=== PATIENT | female | born 1995 | race Asian ===

== ENCOUNTER 2017-05-12 03:41 | Emergency (ER) | payer SELFPAY ==
[~2017-05-12] VITALS: Ht 160 cm; Wt 47.6 kg
--- NOTE | 2017-05-12 03:48 | Emergency Room Report ---
History of Present Illness General Chief Complaint: Alcohol Intoxication Source: Patient Present Illness [facility] personal driver brought the patient and sig other to the emergency department because they were unresponsive in the back seat. Now alert and responsive although they claim that they have drunk a lot of alcohol. She denies any head trauma. She denies medical problems. She states she is not at this time. Denies SI. No NVD, dysuria, dyspnea, rashes. Allergies: Coded Allergies: No Known Allergies (Unverified , 05/12/17) Patient History Past Medical History: see triage record Social History: Reports: alcohol use Social History Narrative with sig other Last Menstrual Period: unk Reviewed Nursing Documentation: PMH: Agreed, PSxH: Agreed Nursing Documentation-PMH Past Medical History: No Stated History Review of Systems All Other Systems: negative except mentioned in HPI Physical Exam Vital Signs Date Time Temp Pulse Resp B/P (MAP) Pulse Ox O2 Delivery O2 Flow Rate FiO2 05/12/17 03:42 98.1 80 18 100/59 98 Room Air Sp02 EP Interpretation: reviewed, normal General Appearance: well appearing, no apparent distress, GCS 15 Head: normocephalic, atraumatic Eyes: bilateral eye PERRL, bilateral eye abnormal EOM - nystagmus, bilateral eye Scleral Injection ENT: normal pharynx, moist mucus membranes Neck: full range of motion, supple Respiratory: chest non-tender, lungs clear, normal breath sounds Cardiovascular #1: regular rate, rhythm Cardiovascular #2: 2+ radial (R) Gastrointestinal: normal inspection, normal bowel sounds, non tender, no mass, non-distended Musculoskeletal: back normal, normal range of motion Neurologic: alert, oriented x3, motor strength/tone normal, sensory intact, other - slight ataxia and slurred speech Psychiatric: mood/affect normal - though angry that she is in ED Skin: normal inspection, warm/dry Medical Decision Making Diagnostic Impression: Primary Impression: Acute alcoholic intoxication Qualified Codes: F10.929 - Alcohol use, unspecified with intoxication, unspecified ER Course Patient admits to alcohol ingestion and is now alert and oriented. Some ataxia initially. She is refusing further work up and evaluation. She is ambulatory in stable for discharge without any further medical evaluation or treatment. No medical emergency at this time. She is stable for discharge in the care of her significant other who will watch over her. Patient stable for outpatient observation and treatment. Last Vital Signs Date Time Temp Pulse Resp B/P (MAP) Pulse Ox O2 Delivery O2 Flow Rate FiO2 05/12/17 04:00 98.1 18 100/59 98 Room Air 05/12/17 03:42 80 Status: improved Disposition: HOME, SELF-CARE Condition: Improved Adithya Juarez M.D. May 12, 2017 03:48
[2017-05-12 03:50] VITALS: BP 100/59
[2017-05-12 04:00] VITALS: BP 100/59
== END 2017-05-12 03:55 | disposition home or self-care (01) ==
LOC: EMR 03:52
DX: F10.129 Alcohol abuse with intoxication, unspecified (principal)
CPT/HCPCS: 99283